=== PATIENT | female | born 1995 | race African-American/Black ===

== ENCOUNTER 2023-03-06 17:00 | Emergency (ER) | payer MEDICAID ==
[~2023-03-06] VITALS: Ht 154.9 cm; Wt 45.5 kg
[2023-03-06 17:26] VITALS: O2SAT 99
[2023-03-06] MEDS ORDERED: ACETAMINOPHEN 325MG TABLET PO ONE (18:00)
[2023-03-06] MEDS ORDERED: IBUPROFEN 400MG TABLET PO ONE (18:00)
[2023-03-06] MEDS ORDERED: IBUPROFEN 400MG TABLET PO NR (18:00)
[2023-03-06] MEDS ORDERED: ACETAMINOPHEN 325MG TABLET PO NR (18:00)
[2023-03-06] MEDS ORDERED: MORP15TA67 MT (21:47)
[2023-03-06] MEDS ORDERED: IBUP-2028 MT (21:47)
[2023-03-06] MEDS ORDERED: TOPUD PO (21:47)
[2023-03-06 22:47] VITALS: BP 113/64; PULSE 86; RESP 16; TEMP 98.3
== END 2023-03-06 22:49 | disposition home or self-care (01) ==
LOC: ER 17:06
DX: S82.61XA Displaced fracture of lateral malleolus of right fibula, initial encounter for closed fracture (principal); Z98.890 Other specified postprocedural states; X58.XXXA Exposure to other specified factors, initial encounter; Y93.89 Activity, other specified; Y92.89 Other specified places as the place of occurrence of the external cause; Y99.8 Other external cause status
CPT/HCPCS: 81025; 73610; 73630; 99284; Z7610